=== PATIENT | female | born 1990 | race Caucasian/White ===

== ENCOUNTER 2017-06-14 07:16 | Inpatient (IN) | payer MEDICAID, OTHER ==
[~2017-06-14 07:16] MED LIST: ESMOLOL 100 MG INJ
[2017-06-14] MEDS: morphine 4 MG/ML VIAL IV ×2 (08:47→10:44)
[2017-06-14] MEDS: ONDANSETRON 4 MG INJ IV ×2 (08:47→21:20)
[2017-06-14 08:50] LABS: ADD UMIC YES; UR ASCORBIC ACID NEGATIVE (NEGATIVE); UR BACTERIA FEW /HPF (NONE SEEN); UR BILIRUBIN (Dip) NEGATIVE (NEGATIVE); UR BLOOD (Dip) 1+ mg/dL (NEGATIVE); UR CLARITY CLOUDY (CLEAR); UR COLOR YELLOW (YELLOW); UR GLUCOSE (Dip) NEGATIVE (NEGATIVE); UR KETONES (Dip) NEGATIVE (NEGATIVE); UR LEUKOCYTE ESTERASE (Dip) 1+ Leu/ul (NEGATIVE); UR MUCUS MANY /HPF (NONE SEEN); UR NITRITE (Dip) NEGATIVE (NEGATIVE); UR RBC 2 /HPF (0-5); UR SPECIFIC GRAVITY (Dip) 1.025 (1.003-1.030); UR SQUAMOUS EPITHELIAL CELL FEW /HPF (FEW); UR TOTAL PROTEIN (Dip) NEGATIVE (NEGATIVE); UR UROBILINOGEN (Dip) NEGATIVE (NEGATIVE); UR WBC 9 /HPF (0-5)
[2017-06-14 09:06] LABS: ADD MAN DIFF? NO
[2017-06-14 09:14] LABS: BASOPHILS % 0.2 % (0.0-2.0); EOSINOPHILS % 0.2 % (0.0-7.0); HEMATOCRIT 37.5 % (37.0-47.0); HEMOGLOBIN 12.7 g/dl (12.0-16.0); LYMPHOCYTES # 1.6 10^3/ul (0.8-2.9); LYMPHOCYTES % 12.4 % (15.0-51.0); MEAN CORPUSCULAR HEMOGLOBIN 31.8 pg (29.0-33.0); MEAN CORPUSCULAR HGB CONC 33.9 g/dl (32.0-37.0); MEAN CORPUSCULAR VOLUME 93.8 fl (82.0-101.0); MEAN PLATELET VOLUME 10.5 fl (7.4-10.4); MONOCYTE # 0.5 10^3/ul (0.3-0.9); MONOCYTES % 3.7 % (0.0-11.0); NEUTROPHIL # 10.9 10^3/ul (1.6-7.5); NEUTROPHILS % 83.2 % (39.0-77.0); PLATELET COUNT 225 10^3/UL (140-415); RED CELL DISTRIBUTION WIDTH 12.6 % (11.5-14.5)
[2017-06-14 09:31] LABS: ALANINE AMINOTRANSFERASE 31 IU/L (13-69); ALBUMIN 4.4 g/dl (3.3-4.9); ALBUMIN/GLOBULIN RATIO 1.46; ALKALINE PHOSPHATASE 65 IU/L (42-121); ANION GAP 14 (8-16); ASPARTATE AMINO TRANSFERASE 21 IU/L (15-46); BILIRUBIN,INDIRECT 0.2 mg/dl (0-1.1); BILIRUBIN,TOTAL 0.2 mg/dl (0.2-1.3); BLOOD UREA NITROGEN 12 mg/dl (7-20); CALCIUM 9.2 mg/dl (8.4-10.2); CARBON DIOXIDE 26 mmol/L (21-31); CHLORIDE 104 mmol/L (97-110); CREATININE 0.56 mg/dl (0.44-1.00); GLUCOSE 134 mg/dl (70-220); LIPASE 67 U/L (23-300); POTASSIUM 3.8 mmol/L (3.5-5.1); SODIUM 140 mmol/L (135-144); TOTAL PROTEIN 7.4 g/dl (6.1-8.1)
[2017-06-14] MEDS: SOD CHLORIDE 0.9% 1,000 ML IV ×5 (11:00→21:20)
[2017-06-14] MEDS: SOD CHLORIDE 0.9% 100 ML (12:38)
[2017-06-14] MEDS: IOHEXOL 300MG/ML 150 ML BTL (12:38)
[2017-06-14] MEDS: HYDROmorphONE 1 MG/ML SYG IV ×2 (13:37→13:38)
[2017-06-14] MEDS: PIPER-TAZO 3.375 GM IV (PMX) 100 ML IVPB ×3 (13:51→22:28)
[2017-06-14] MEDS ORDERED: FENTAnyl 50 MCG/ML VIAL ×3 (15:17→17:13)
[2017-06-14] MEDS ORDERED: ROPIVACAINE 0.2% 20 ML VIAL (15:17)
[2017-06-14] MEDS ORDERED: PROPOFOL 20 ML (15:17)
[2017-06-14] MEDS ORDERED: MIDAZOLAM 1 MG/ML 2 ML INJ (15:17)
[2017-06-14] MEDS: BUPIVACAINE 0.25% (MPF) 30 ML INJ (16:08)
[2017-06-14] MEDS: LIDOCAINE 1%/EPI 30 ML INJ (16:08)
[2017-06-14] MEDS ORDERED: METOCLOPRAMIDE 10 MG INJ (16:18)
[2017-06-14] MEDS ORDERED: KETOROLAC 30 MG INJ (16:18)
[2017-06-14] MEDS ORDERED: ONDANSETRON 4 MG INJ ×2 (16:18→17:14)
[2017-06-14] MEDS ORDERED: DEXAMETHASONE 4 MG/ML 1 ML INJ (16:18)
[2017-06-14] MEDS ORDERED: SUGAMMADEX SODIUM 200 MG/2 ML VIAL IV (16:19)
[2017-06-14] MEDS ORDERED: PHENYLephrine (100 MCG/ML) 5ML SYG (16:29)
[2017-06-14] MEDS ORDERED: SOD CHLORIDE 0.9% 1,000 ML IV (16:30)
[2017-06-14] MEDS ORDERED: morphine 2 MG INJ IV (16:30)
[2017-06-14] MEDS ORDERED: MEPERIDINE 25 MG INJ (16:55)
[2017-06-14] MEDS ORDERED: ONDANSETRON 4 MG INJ IV (17:00)
[2017-06-14] MEDS ORDERED: LABETALOL HCL 20MG INJ IV (17:00)
[2017-06-14] MEDS ORDERED: HYDROmorphONE (0.2 MG/ML) 10ML SYG IV ×3 (17:00→17:14)
[2017-06-14] MEDS ORDERED: hydrALAzine 20 MG INJ IV (17:00)
[2017-06-14] MEDS ORDERED: METOCLOPRAMIDE 10 MG INJ IV (17:00)
[2017-06-14] MEDS: MEPERIDINE 25 MG INJ IV ×4 (17:00→21:33)
[2017-06-14] MEDS ORDERED: DIPHENHYDRAMINE 50 MG INJ IV (17:00)
[2017-06-14] MEDS ORDERED: FENTAnyl 50 MCG/ML VIAL IV ×3 (17:00)
[2017-06-14] MEDS: HYDROmorphONE (0.2 MG/ML) 10ML SYG IV ×3 (17:16→21:32)
[2017-06-14] MEDS ORDERED: EPHEDrine SULFATE 50 MG/5 ML SYG (17:38)
[2017-06-14] MEDS: EPHEDrine SULFATE 50 MG/5 ML SYG IV ×2 (17:40→18:25)
[2017-06-14] MEDS ORDERED: PIPER-TAZO 3.375 GM IV (PMX) 100 ML (18:35)
[2017-06-14] MEDS ORDERED: CIPROFLOXACIN 400MG/D5W 200 ML IVPB (21:00)
[2017-06-14] MEDS: HYDROmorphONE 0.5 MG/0.5 ML SYG IV (21:20)
[2017-06-14] MEDS ORDERED: metroNIDAZOLE 500 MG/NS (PMX) 100 ML IVPB (22:00)
[2017-06-15] MEDS: HYDROCODONE/APAP (5/325) TAB PO ×4 (01:34→23:28)
[2017-06-15] MEDS: ACETAMINOPHEN 325 MG TAB PO (03:59)
[2017-06-15 05:13] LABS: ADD MAN DIFF? NO
[2017-06-15] MEDS: PANTOPRAZOLE (EC) 40 MG TAB PO (05:17)
[2017-06-15] MEDS: PIPER-TAZO 3.375 GM IV (PMX) 100 ML IVPB ×4 (05:17→23:29)
[2017-06-15] MEDS: SOD CHLORIDE 0.9% 1,000 ML IV ×3 (05:19→15:02)
[2017-06-15 05:20] LABS: WHITE BLOOD COUNT 11.9 10^3/ul (4.8-10.8)
[2017-06-15 05:20] LABS: BASOPHILS % 0.1 % (0.0-2.0); HEMATOCRIT 25.4 % (37.0-47.0); HEMOGLOBIN 8.5 g/dl (12.0-16.0); LYMPHOCYTES # 1.6 10^3/ul (0.8-2.9); LYMPHOCYTES % 13.2 % (15.0-51.0); MEAN CORPUSCULAR HEMOGLOBIN 31.7 pg (29.0-33.0); MEAN CORPUSCULAR HGB CONC 33.5 g/dl (32.0-37.0); MEAN CORPUSCULAR VOLUME 94.8 fl (82.0-101.0); MEAN PLATELET VOLUME 10.5 fl (7.4-10.4); MONOCYTE # 0.7 10^3/ul (0.3-0.9); MONOCYTES % 5.5 % (0.0-11.0); NEUTROPHIL # 9.6 10^3/ul (1.6-7.5); NEUTROPHILS % 80.7 % (39.0-77.0); PLATELET COUNT 178 10^3/UL (140-415); RED BLOOD COUNT 2.68 10^6/ul (4.20-5.40); RED CELL DISTRIBUTION WIDTH 13.1 % (11.5-14.5)
[2017-06-15 06:00] LABS: ANION GAP 9 (8-16); BLOOD UREA NITROGEN 7 mg/dl (7-20); CALCIUM 8.1 mg/dl (8.4-10.2); CARBON DIOXIDE 27 mmol/L (21-31); CHLORIDE 106 mmol/L (97-110); GLUCOSE 116 mg/dl (70-220); MAGNESIUM 1.7 mg/dl (1.7-2.5); POTASSIUM 3.5 mmol/L (3.5-5.1); SODIUM 138 mmol/L (135-144)
[2017-06-15] MEDS: HYDROmorphONE 0.5 MG/0.5 ML SYG IV (08:12)
[2017-06-15] MEDS: ONDANSETRON 4 MG INJ IV (10:26)
[2017-06-15 15:43] LABS: TROPONIN-I < 0.012 ng/ml (0.00-0.12)
[2017-06-15] MEDS ORDERED: POLYETHYLENE GLYCOL 17 GM PACKET PO (20:00)
[2017-06-15] MEDS: MAGNESIUM HYDROXIDE 30ML CUP PO (20:18)
[2017-06-15] MEDS: DOCUSATE SODIUM 100 MG CAP PO (20:19)
[2017-06-16] MEDS: PIPER-TAZO 3.375 GM IV (PMX) 100 ML IVPB ×2 (05:10→11:41)
[2017-06-16] MEDS: PANTOPRAZOLE (EC) 40 MG TAB PO (05:10)
[2017-06-16] MEDS: SOD CHLORIDE 0.9% 1,000 ML IV ×2 (05:10→11:32)
[2017-06-16 05:55] LABS: ADD MAN DIFF? NO
[2017-06-16 05:57] LABS: WHITE BLOOD COUNT 6.5 10^3/ul (4.8-10.8)
[2017-06-16 05:57] LABS: BASOPHILS % 0.3 % (0.0-2.0); EOSINOPHILS % 0.5 % (0.0-7.0); HEMATOCRIT 22.9 % (37.0-47.0); HEMOGLOBIN 7.5 g/dl (12.0-16.0); LYMPHOCYTES # 3.2 10^3/ul (0.8-2.9); LYMPHOCYTES % 49.4 % (15.0-51.0); MEAN CORPUSCULAR HEMOGLOBIN 31.8 pg (29.0-33.0); MEAN CORPUSCULAR HGB CONC 32.8 g/dl (32.0-37.0); MEAN PLATELET VOLUME 10.3 fl (7.4-10.4); MONOCYTE # 0.4 10^3/ul (0.3-0.9); NEUTROPHIL # 2.8 10^3/ul (1.6-7.5); NEUTROPHILS % 43.6 % (39.0-77.0); PLATELET COUNT 158 10^3/UL (140-415); RED BLOOD COUNT 2.36 10^6/ul (4.20-5.40); RED CELL DISTRIBUTION WIDTH 13.4 % (11.5-14.5)
[2017-06-16 06:26] LABS: ANION GAP 9 (8-16); BLOOD UREA NITROGEN 9 mg/dl (7-20); CALCIUM 8.1 mg/dl (8.4-10.2); CARBON DIOXIDE 27 mmol/L (21-31); CHLORIDE 109 mmol/L (97-110); CREATININE 0.71 mg/dl (0.44-1.00); GLUCOSE 82 mg/dl (70-220); POTASSIUM 3.4 mmol/L (3.5-5.1); SODIUM 142 mmol/L (135-144)
[2017-06-16] MEDS: HYDROCODONE/APAP (5/325) TAB PO ×2 (08:09→16:36)
[2017-06-16] MEDS: POTASSIUM CHLORIDE (SR) 20 MEQ TAB PO (08:09)
[2017-06-16] MEDS: DOCUSATE SODIUM 100 MG CAP PO (09:00)
[2017-06-16 15:26] LABS: HEMATOCRIT 27.2 % (37.0-47.0); HEMOGLOBIN 8.8 g/dl (12.0-16.0)
== END 2017-06-16 18:20 | disposition home or self-care (01) | DRG 339 ==
LOC: FTE 07:16 → PP2 13:47 → MS1 20:35
PROC: 0DTJ4ZZ Resection of Appendix, Percutaneous Endoscopic Approach (ICD-10-PCS; principal; 2017-06-14 15:49)
DX: K35.2 Acute appendicitis with generalized peritonitis (principal); N39.0 Urinary tract infection, site not specified; K21.9 Gastro-esophageal reflux disease without esophagitis; D64.9 Anemia, unspecified
CPT/HCPCS: 36415; 71045; 74177; 76705; 80048; 80053; 81001; 83690; 83735; 84484; 84703; 85014; 85018; 85025; 87086; 88304; 93005; 96374; 96375; 96376; 99285-25